=== PATIENT | female | born 1980 | race Asian ===

== ENCOUNTER 2017-03-27 12:00 | Inpatient (IN) | payer SELFPAY ==
[~2017-03-27] VITALS: Ht 170 cm; Wt 65.0 kg
[2017-03-29] MEDS ORDERED: LR 1,000 ML IV ONE (10:56)
[2017-03-29] MEDS ORDERED: CEFAZOLIN 2 GM IVPB PREMIX 50 ML IV ONE (11:00)
[2017-03-29 11:41] LABS: BASOPHILS % (AUTO) 0.2 % (0.0-2.0); EOSINOPHILS % (AUTO) 0.6 % (0.0-4.0); HEMATOCRIT 36.6 % (36-48); HEMOGLOBIN 12.2 g/dL (12.0-16.0); LYMPHOCYTES # (AUTO) 1.5 K/uL (1.0-5.5); MEAN CORPUSCULAR HEMOGLOBIN 31 pg (27-31); MEAN CORPUSCULAR HGB CONC 33 % (32-36); MEAN CORPUSCULAR VOLUME 92 fL (79.0-98.0); MONOCYTES # (AUTO) 0.5 K/uL (0.0-1.0); NEUTROPHILS # (AUTO) 5.7 K/uL (1.8-7.7); NEUTROPHILS % (AUTO) 73.2 % (40.0-70.0); PLATELET COUNT (AUTO) 185 K/uL (130-430); RED BLOOD CELL COUNT(AUTO) 3.96 MIL/uL (4.2-6.2); RED CELL DISTRIBUTION WIDTH 12.4 % (9.0-15.0); WHITE BLOOD COUNT (AUTO) 7.7 K/uL (4.8-10.8)
[2017-03-29] MEDS ORDERED: OXYTOCIN/NORMAL SALINE 1,000 ML IV ONE (12:16)
[2017-03-29] MEDS ORDERED: ANUSOL 1 EA SUPP.RECT (PREPARATION H) RC PRN (12:30)
[2017-03-29] MEDS ORDERED: MEASLES,MUMPS&RUBELLA VACC/PF 12500 UNIT/0.5 ML VIAL SUBQ PRN (12:30)
[2017-03-29] MEDS ORDERED: LANOLIN 7 GM OINT. TP PRN (12:30)
[2017-03-29] MEDS ORDERED: HYDROcodone/ACETAMIN 5-325 MG TAB (NORCO/ VICODIN) PO PRN (12:30)
[2017-03-29] MEDS ORDERED: OXYCODONE/ACETAMINOPHEN 5-325 TABLET PO PRN (12:30)
[2017-03-29] MEDS ORDERED: LR 1,000 ML IV SCH (12:54)
[2017-03-29] MEDS ORDERED: ONDANSETRON HCL 4 MG/2 ML VIAL IVP PRN (13:00)
[2017-03-29] MEDS ORDERED: NALOXONE HCL 0.4 MG/ML AMP (NARCAN) IVP PRN (13:00)
[2017-03-29] MEDS ORDERED: MORPHINE SULFATE 10MG/10ML PF AMP SP SCH (13:00)
[2017-03-29] MEDS ORDERED: DIPHENHYDRAMINE INJ 50 MG/ML VIAL IM PRN (13:00)
[2017-03-29] MEDS ORDERED: METOCLOPRAMIDE HCL 10 MG/2 ML VIAL IVP PRN (13:00)
[2017-03-29] MEDS ORDERED: KETOROLAC TROMETHAMINE 60 MG/2 ML VIAL IM PRN (13:00)
[2017-03-29 16:22] VITALS: BP_SYST 108
[2017-03-29] MEDS: CEFAZOLIN 1 GM IVPB PREMIX 50 ML IV SCH (17:43)
[2017-03-29] MEDS ORDERED: NS IRRIG SOLN 1000 ML IR ONE (18:31)
[2017-03-29] MEDS ORDERED: OXYTOCIN 10 UNIT/ML VIAL IV ONE (18:31)
[2017-03-29] MEDS ORDERED: LR 1,000 ML IV.SOLN IV ONE (18:31)
[2017-03-29] MEDS ORDERED: ONDANSETRON HCL 4 MG/2 ML VIAL IVP ONE (18:31)
[2017-03-29] MEDS ORDERED: MIDAZOLAM HCL 5 MG/ML VIAL (VERSED) IV ONE (18:31)
[2017-03-29] MEDS ORDERED: MORPHINE SULFATE 10MG/10ML PF AMP EP ONE (19:45)
[2017-03-29] MEDS ORDERED: TEMAZEPAM 15 MG CAPSULE PO PRN (21:00)
[2017-03-30] MEDS: CEFAZOLIN 1 GM IVPB PREMIX 50 ML IV SCH ×2 (00:08→05:57)
[2017-03-30] MEDS: IBUPROFEN 600 MG TABLET PO SCH ×3 (05:57→18:13)
[2017-03-30 06:31] LABS: BASOPHILS % (AUTO) 0.1 % (0.0-2.0); EOSINOPHILS # (AUTO) 0.1 K/uL (0.0-0.4); EOSINOPHILS % (AUTO) 0.6 % (0.0-4.0); HEMATOCRIT 34.9 % (36-48); HEMOGLOBIN 11.9 g/dL (12.0-16.0); LYMPHOCYTES % (AUTO) 9.7 % (20.5-51.5); MEAN CORPUSCULAR HEMOGLOBIN 31 pg (27-31); MEAN CORPUSCULAR HGB CONC 34 % (32-36); MEAN CORPUSCULAR VOLUME 91 fL (79.0-98.0); MONOCYTES # (AUTO) 0.5 K/uL (0.0-1.0); MONOCYTES % (AUTO) 4.4 % (1.7-9.3); NEUTROPHILS # (AUTO) 9.2 K/uL (1.8-7.7); NEUTROPHILS % (AUTO) 85.2 % (40.0-70.0); PLATELET COUNT (AUTO) 139 K/uL (130-430); RED BLOOD CELL COUNT(AUTO) 3.83 MIL/uL (4.2-6.2); RED CELL DISTRIBUTION WIDTH 12.8 % (9.0-15.0); WHITE BLOOD COUNT (AUTO) 10.8 K/uL (4.8-10.8)
[2017-03-30] MEDS: OXYCODONE/ACETAMINOPHEN 5-325 TABLET PO PRN ×2 (12:44→20:12)
[2017-03-30] MEDS: SIMETHICONE 80 MG TAB.CHEW PO PRN (20:12)
[2017-03-30] MEDS: DOCUSATE SODIUM 100 MG CAPSULE PO PRN (20:12)
[2017-03-31] MEDS: IBUPROFEN 600 MG TABLET PO SCH (12:41)
[2017-03-31] MEDS: DOCUSATE SODIUM 100 MG CAPSULE PO PRN (16:14)
[2017-03-31] MEDS: SIMETHICONE 80 MG TAB.CHEW PO PRN (16:14)
== END 2017-03-31 17:10 | disposition home or self-care (01) | DRG 766 ==
LOC: SPU 03-29 09:26
PROVIDERS: ADMIT Obstetrics & Gynecology; ATTEND Obstetrics & Gynecology
PROC: 10D00Z1 Extraction of Products of Conception, Low, Open Approach (ICD-10-PCS; principal; 2017-03-29 12:30)
DX: O32.1XX0 Maternal care for breech presentation, not applicable or unspecified (principal); Z37.0 Single live birth; Z3A.39 39 weeks gestation of pregnancy
CPT/HCPCS: 36415; 85025; 86886; 86900; 86901; 94760; J0690; J2250; J2274; J2405; J2590; J7120